=== PATIENT | female | born 1965 | race Caucasian/White ===

== ENCOUNTER 2022-11-09 13:35 | Outpatient (CLI) | payer OTHER, SELFPAY ==
--- NOTE | ~2022-11-09 | US_ITS ---
EXAMINATION: US renal BI DATE: 11/09/2022 13:55 INDICATION: I10 - Essential (primary) hypertension TECHNIQUE: Multiple grayscale and Doppler ultrasound images of the kidneys were obtained. COMPARISON: None. FINDINGS: The right kidney measures 10.7 x 5.2 x 4.3 cm. The left kidney measures 11.4 x 5.4 x 5.1 cm. The kidn eys demonstrate normal parenchymal echogenicity. There is no hydronephrosis. The bladder is normal. IMPRESSION: Unremarkable renal sonogram findings. Reviewed, dictated and finalized at location [facility].
== END 2022-11-09 13:36 ==
PROVIDERS: PCP Physician Assistant Medical; Visit Provider Physician Assistant Medical
DX: I10 Essential (primary) hypertension (principal)
CPT/HCPCS: 76775

== ENCOUNTER 2023-07-07 19:03 | Emergency (ER) | payer OTHER, SELFPAY ==
--- NOTE | 2023-07-07 19:06 | ED.SKABFB ---
HPI - Skin/Abscess/Foreign Bdy General Stated complaint: Face swollen Time Seen by Provider: 07/07/23 19:23 Source: patient and RN notes reviewed Mode of arrival: ambulatory Limitations: no limitations History of Present Illness HPI narrative: 58-year-old female presents concern for a swollen area on her left jaw and right jaw. Reports today she noticed a lump along her right jaw that was non tender, non warm, not fluctuant that has since went away, she now notices 1 on her right jaw that is nontender, non warm, not fluctuant. She denies any itching, rash. She reports she may have had some swelling under her left eye at some point. She denies swollen lips, swollen tongue, trouble breathing, nausea, vomiting, diarrhea. She reports she is 7 days into a course of Flagyl for diverticulitis, or diverticulitis symptoms are improving. She called her dentist to instructed her to continue her antibiotic and follow-up with them on Monday. She had a root canal on the left lower side about 1 month ago. She denies dental pain MD complaint: other (swollen lymph node) Related Data Home Medications Medication Instructions Recorded Confirmed cholecalciferol (vitamin D3) 125 125 mcg PO DAILY 03/30/22 01/30/23 mcg (5,000 unit) capsule multivitamin 1 tablet PO DAILY 10/03/22 01/30/23 Allergies Allergy/AdvReac Type Severity Reaction Status Date / Time Penicillins Allergy Mild Rash Verified 07/07/23 19:13 cephalexin [From Keflex] AdvReac Mild diarrhea Verified 07/07/23 19:13 Review of Systems Review of Systems: CONSTITUTIONAL: Denies malaise, chills, sweats, or fever. EYES: Denies redness, or discharge. ENT: Denies rhinorrhea, congestion, swollen lips, swollen tongue. Reports a lump on her right jaw area CARDIOVASCULAR: Denies chest pain, palpitations, or edema. RESPIRATORY: Denies cough or dyspnea. GASTROINTESTINAL: Denies abdominal pain, nausea, vomiting SKIN: Denies itching or rash MUSCULOSKELETAL: Denies joint pain or myalgia. NEUROLOGIC: Denies headache. All systems reviewed & are unremarkable except as noted in HPI and below PMFSH Past Medical History Medical History Hypertension Impaired fasting blood sugar URI (upper respiratory infection) Surgical History Surgical History History of Hx of colonoscopy 08/30/2020 Family History Family History Sibling Thyroid cancer Father Skin cancer Social History Social History Smoking status: Never smoker Second hand tobacco smoke exposure: No Alcohol intake: current Substance use: never Substance use type: does not use Lack of Transportation: No Lack of Food: Never True Current Housing: I Have Housing Concerned About Future Housing: No Difficulty Paying Gas/Electric Bills: No Difficulty Paying for Meds: No Currently Unemployed: No Education: High School Diploma/GED Difficulty w/ Childcare or Family Care: No Living arrangements: with family Occupation/Education: occupation 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 There is no relevant family history pertinent to the presenting complaint Exam Narrative: GENERAL: Well-appearing, well-nourished, and in no acute distress. HEAD: Normocephalic, atraumatic. EYES: PERRLA, conjunctivae clear, and EOMI. Eyelids unremarkable ENT: Mucous membranes moist. Oropharynx without edema, erythema or lesions. NECK: Supple. No lymphadenopathy CHEST: Clear to auscultation. No respiratory distress. HEART: Regular rate
[2023-07-07 19:11] VITALS: BP 148/85; PULSE 92; RESP 18; TEMP 36.2; O2SAT 100
== END 2023-07-07 19:35 | disposition home or self-care (01) ==
PROVIDERS: Emergency Provider Nurse Practitioner; PCP Physician Assistant Medical
DX: R59.9 Enlarged lymph nodes, unspecified (principal); I10 Essential (primary) hypertension
CPT/HCPCS: 99211; G0463